=== PATIENT | female | born 1945 | race Caucasian/White ===

== ENCOUNTER 2016-11-26 21:54 | Emergency (ER) | payer MEDICARE, OTHER ==
[2016-11-26] MEDS ORDERED: HYDROmorphone 0.5 MG/0.5 ML Syringe IVPUSH ONE (22:19)
--- NOTE | 2016-11-26 22:26 | EDM.PDOC ---
ED HPI GENERAL MEDICAL PROBLEM - General Chief Complaint: General Stated Complaint: [facility] Time Seen by Provider: 11/26/16 22:22 Source of Information: Reports: Patient, Family History Limitations: Reports: No Limitations - History of Present Illness INITIAL COMMENTS - FREE TEXT/NARRATIVE: pt fell coming out of a camper and hit her rt lower anterior rib cage. she is having trouble taking a deep breath. She has had previous fractured ribs. Onset: Today Duration: Hour(s):, Getting Worse Location: Reports: Chest Associated Symptoms: Reports: Chest Pain Right Pain Score (Numeric/FACES): 2 - Related Data Allergies Allergy/AdvReac Type Severity Reaction Status Date / Time ciprofloxacin [From Cipro] Allergy Cannot Verified 11/26/16 22:02 Remember oxycodone Allergy Hives Verified 11/26/16 22:02 Home Meds: Home Meds Aspirin 81 mg PO DAILY 11/26/16 [History] Clopidogrel [Plavix] 75 mg PO DAILY 11/26/16 [History] Past Medical History Cardiovascular History: Reports: High Cholesterol, Hypertension Respiratory History: Reports: COPD Endocrine/Metabolic History: Reports: Diabetes, Type II - Infectious Disease History Infectious Disease History: Reports: Chicken Pox, Measles, Mumps - Past Surgical History HEENT Surgical History: Reports: Cataract Surgery GI Surgical History: Reports: Appendectomy Musculoskeletal Surgical History: Reports: Knee Replacement Social & Family History - Tobacco Use Smoking Status *Q: Former Smoker Used Tobacco, but Quit: Yes Month Tobacco Last Used: many years ago - Caffeine Use Caffeine Use: Reports: Coffee, Tea - Recreational Drug Use Recreational Drug Use: No ED ROS GENERAL - Review of Systems Review Of Systems: See Below Constitutional: Reports: No Symptoms HEENT: Reports: No Symptoms Respiratory: Reports: Shortness of Breath, Other (pain with deep breathing. ) Cardiovascular: Reports: Chest Pain, Other (pt had a fall and hit her rt chest. ) Endocrine: Reports: No Symptoms GI/Abdominal: Reports: No Symptoms : Reports: No Symptoms Musculoskeletal: Reports: No Symptoms ED EXAM, GENERAL - Physical Exam Exam: See Below Free Text/Narrative:: pt arrived with severe pain in the rt ant chest. She fell when she came out of the camper She is having pain with deep breathing. Exam Limited By: No Limitations General Appearance: Alert, Anxious, Moderate Distress Ears: Normal TMs Nose: Normal Inspection Throat/Mouth: Normal Inspection Head: Atraumatic Neck: Normal Inspection Respiratory/Chest: Splinting. No: Other (pt is having alot of pain with deepbreathing) Cardiovascular: Regular Rate, Rhythm GI/Abdominal: Soft, Non-Tender (Female) Exam: Deferred Rectal (Female) Exam: Deferred Back Exam: Normal Inspection Extremities: Normal Inspection Neurological: Alert, Oriented, Normal Cognition Psychiatric: Normal Affect, Anxious Course - Vital Signs Last Recorded V/S: Last Vital Signs Temp 36.8 C 11/26/16 23:35 Pulse 55 L 11/26/16 23:35 Resp 16 11/26/16 23:35 BP 149/76 H 11/26/16 23:35 Pulse Ox 94 L 11/26/16 23:35 - Orders/Labs/Meds Orders: Active Orders 24 hr Category Date Time Status Chest wo Cont [CT] Stat Exams 11/26/16 22:20 Taken Meds: Medications Discontinued Medications Generic Name Dose Route Start Last Admin Trade Name Freq PRN Reason Stop Dose Admin Hydrocodone Bitart/Acetaminophen 1 tab 11/26/16 23:38 Ashley 325-5 Mg PO 11/26/16 23:39 ONETIME ONE Hydromorphone HCl 0.5 mg 11/26/16 22:19 11/26/16 22:46 Dilaudid IVPUSH 11/26/16 22:20 0.5 mg ONETIME ONE Administration - Re-Assessments/Exams Free Text/Narrative Re-Assessment/Exam: 11/26/16 23:40 pt has had a acute fracture of the 6th rib on the rt Departure - Departure Time of Disposition: 23:35 Disposition: Home, Self-Care 01 Condition: Fair Clinical Impression: Fracture, rib - Discharge Information Referrals: PCP,None [Primary Care Provider] - Forms: ED Department Discharge Care Plan Goals: encourage deep breathing, incentive spirometer, norco 5/325 q6h prn for pain, motrin 600mg tid, cool pack to rt ant ribs, use prunes and fruits to avoid constipation - My Orders Last 24 Hours: My Active Orders 11/26/16 22:20 Chest wo Cont [CT] Stat - Assessment/Plan Last 24 Hours: My Active Orders 11/26/16 22:20 Chest wo Cont [CT] Stat
[2016-11-26 23:35] VITALS: BP 149/76
[2016-11-26] MEDS ORDERED: Acetaminophen/HYDROcodone 325-5 MG Tab PO ONE (23:38)
== END 2016-11-27 00:19 | disposition home or self-care (01) ==
LOC: JP.ED 21:54
DX: S22.31XA Fracture of one rib, right side, initial encounter for closed fracture (principal); E78.00 Pure hypercholesterolemia, unspecified; I10 Essential (primary) hypertension; J44.9 Chronic obstructive pulmonary disease, unspecified; E11.9 Type 2 diabetes mellitus without complications; Z98.49 Cataract extraction status, unspecified eye; Z87.891 Personal history of nicotine dependence; Z90.49 Acquired absence of other specified parts of digestive tract; Z96.659 Presence of unspecified artificial knee joint; Z79.82 Long term (current) use of aspirin; Z79.899 Other long term (current) drug therapy; Z88.1 Allergy status to other antibiotic agents; Z88.6 Allergy status to analgesic agent; W18.00XA Striking against unspecified object with subsequent fall, initial encounter
CPT/HCPCS: 71250; 82962; 96374; 99284; A9270; J1170